=== PATIENT | male | born 1960 | race Caucasian/White ===

== ENCOUNTER 2019-10-31 20:00 | Emergency (ER) | payer OTHER, BC ==
[~2019-10-31] VITALS: Ht 177.8 cm; Wt 86.2 kg
[2019-10-31 20:22] LABS: ABSOLUTE NEUTROPHILS 4.2 thou/uL (1.4-8.2); BASOPHILS 0.8 % (0.0-2.0); EOSINOPHILS 5.8 % (0.0-3.0); HEMATOCRIT 43.6 % (42.0-52.0); HEMOGLOBIN 14.9 gm/dL (14.0-18.0); LYMPHOCYTES 42.6 % (24.0-44.0); MCH 29.4 pg (26.0-34.0); MCHC 34.2 g/dL (28.0-37.0); MCV 86.2 fL (80.0-100.0); MONOCYTES 8.7 % (1.0-8.0); PLATELET COUNT 264 thou/uL (150-400); POLYS 42.1 % (36.0-66.0); RBC 5.06 mil/uL (4.50-6.00); RDW 13.7 % (10.5-14.5)
[2019-10-31 20:30] LABS: CREATININE 1.3 mg/dL (0.7-1.3)
[2019-10-31 20:38] LABS: APTT 23.3 Seconds (24.5-32.8); PROTIME 10.3 Seconds (9.3-11.4)
[2019-11-01 02:10] VITALS: BP 159/84
== END 2019-11-01 02:11 | disposition short-term general hospital (02) ==
LOC: ER 20:00
PROVIDERS: Emergency Medicine
DX: S02.32XA Fracture of orbital floor, left side, initial encounter for closed fracture (principal); S02.842A Fracture of lateral orbital wall, left side, initial encounter for closed fracture; Y99.8 Other external cause status; S01.412A Laceration without foreign body of left cheek and temporomandibular area, initial encounter; Z88.2 Allergy status to sulfonamides; Z87.891 Personal history of nicotine dependence; W10.8XXA Fall (on) (from) other stairs and steps, initial encounter; Y92.008 Other place in unspecified non-institutional (private) residence as the place of occurrence of the external cause; Y93.89 Activity, other specified